=== PATIENT | female | born 1990 | race African-American/Black ===

== ENCOUNTER 2021-08-30 13:08 | Emergency (ER) | payer MEDICAID, OTHER ==
[~2021-08-30] VITALS: Ht 157.5 cm; Wt 59.0 kg
[2021-08-30 13:12] VITALS: BP 94/65
== END 2021-08-30 14:29 | disposition left against medical advice (07) ==
LOC: ER 13:08
DX: O20.8 Other hemorrhage in early pregnancy (principal); Z3A.11 11 weeks gestation of pregnancy; Z53.21 Procedure and treatment not carried out due to patient leaving prior to being seen by health care provider